=== PATIENT | male | born 1975 | race African-American/Black ===

== ENCOUNTER 2016-10-26 11:07 | Emergency (ER) | payer OTHER ==
[~2016-10-26] VITALS: Ht 182.9 cm; Wt 135.2 kg
[2016-10-26 11:14] VITALS: BP 145/97
--- NOTE | 2016-10-26 11:20 | NUR ---
PATIENT AMBULATED TO ER BED 3.
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
--- NOTE | 2016-10-26 11:21 | NUR ---
Patient being evaluated by physician at bedside.
--- NOTE | 2016-10-26 11:25 | NUR ---
ice pack made with a glove---applied to pt's knee
--- NOTE | 2016-10-26 11:38 | NUR ---
dc home instructions given to pt--continue to wait for x-ray results.
--- NOTE | 2016-10-26 11:56 | NUR ---
portable x-ray completed
--- NOTE | 2016-10-26 12:20 | NUR ---
encouraged to elevate leg while at rest and apply ice within first x48hrs then turn to heat packs also to f/u with pmd
[2016-10-26 12:33] VITALS: BP 141/95
== END 2016-10-26 12:20 | disposition home or self-care (01) ==
LOC: MED 11:07
DX: S80.01XA Contusion of right knee, initial encounter (principal); G43.909 Migraine, unspecified, not intractable, without status migrainosus; R03.0 Elevated blood-pressure reading, without diagnosis of hypertension; V49.40XA Driver injured in collision with unspecified motor vehicles in traffic accident, initial encounter; Y93.89 Activity, other specified; Y92.89 Other specified places as the place of occurrence of the external cause; Y99.8 Other external cause status
CPT/HCPCS: 73562; 99284; Q0092

== ENCOUNTER 2016-12-12 02:25 | Emergency (ER) | payer OTHER ==
[~2016-12-12] VITALS: Ht 180.3 cm; Wt 111.1 kg
[2016-12-12 02:38] VITALS: BP 145/74
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
[2016-12-12 03:18] VITALS: BP 132/67
--- NOTE | 2016-12-12 03:18 | NUR ---
Patient discharged with v/s stable. Written and verbal after care instructions given and explained. Patient verbalized understanding. Ambulatory with steady gait. All questions addressed prior to discharge. Advised to follow up with PMD.
== END 2016-12-12 03:18 | disposition home or self-care (01) ==
LOC: MED 02:25
DX: S86.911A Strain of unspecified muscle(s) and tendon(s) at lower leg level, right leg, initial encounter (principal); R03.0 Elevated blood-pressure reading, without diagnosis of hypertension; V89.2XXA Person injured in unspecified motor-vehicle accident, traffic, initial encounter; Y93.89 Activity, other specified; Y92.89 Other specified places as the place of occurrence of the external cause; Y99.8 Other external cause status
CPT/HCPCS: 29505; 99283

== ENCOUNTER 2017-04-12 00:43 | Emergency (ER) | payer OTHER ==
[~2017-04-12] VITALS: Ht 180.3 cm; Wt 131.5 kg
[2017-04-12 00:45] VITALS: BP 153/77
[2017-04-12 01:57] LABS: HEMATOCRIT 42.1 % (36-52); HEMOGLOBIN 13.7 g/dL (12.0-18.0); MEAN CORPUSCULAR HEMOGLOBIN 29 pg (27-31); MEAN CORPUSCULAR HGB CONC 33 g/dL (33-37); MEAN CORPUSCULAR VOLUME 88 fL (80-94); PLATELET COUNT (AUTO) 212 K/uL (140-450); RED BLOOD CELL COUNT(AUTO) 4.78 MIL/uL (4.20-6.10); RED CELL DISTRIBUTION WIDTH 12.8 % (11.6-13.7)
[2017-04-12 02:11] LABS: ANION GAP 11.2 (8-16); CARBON DIOXIDE 27.2 mmol/L (21-32); CREATININE 1.1 mg/dL (0.7-1.3); POTASSIUM 3.4 mmol/L (3.5-5.1)
[2017-04-12 02:12] LABS: LYMPHOCYTES % (MANUAL) 27 % (20-46)
[2017-04-12 02:13] LABS: EOSINOPHILS % (MANUAL) 2 % (0-4); MONOCYTES % (MANUAL) 8 % (5-12)
[2017-04-12 02:16] LABS: ALBUMIN 3.8 g/dL (3.4-5.0); TOTAL BILIRUBIN 0.2 mg/dL (0.0-1.0)
[2017-04-12 02:18] LABS: PROTHROMBIN TIME 9.9 secs (10.8-13.4)
--- NOTE | 2017-04-12 03:08 | NUR ---
BIB WHEELCHAIR TO ER BED 3
--- NOTE | 2017-04-12 03:12 | NUR ---
PATIENT PRESENTS TO ED WITH C/O CHEST PAIN X 1 DAY NON RADIATING, SUBSTERNL. PT STATES PAIN IS SHARP WAS 9/10 WHEN IT OCCURRED BY NOW 0/10. PT ALSO C/O LEFT KNEE PAIN, PT DENIES ANY TRUAMA TO THE AREA BUT DID STATES HE STANDS ON HIS FEET ALOT WHILE AT WORK. PT STATES HE IS HAVING BILAT FOOT SWELLING X 13 MONTHS . PT DENIES N/V/D; SKIN IS PINK/WARM/DRY; AAOX4 WITH EVEN AND STEADY GAIT; LUNGS CLEAR BL; HR EVEN AND REGULAR; PT DENIES ANY FEVER, SOB, OR COUGH AT THIS TIME; PATIENT STATES PAIN OF 0/10 AT THIS TIME; VSS; PATIENT FOR COMFORT; HOB ELEVATED; BEDRAILS UP X2; BED DOWN. ER MD MADE AWARE OF PT STATUS.
[2017-04-12 04:32] VITALS: BP 142/73
--- NOTE | 2017-04-12 04:32 | NUR ---
Patient discharged with v/s stable. Written and verbal after care instructions given and explained. Patient alert, oriented and verbalized understanding of instructions. Ambulatory with steady gait. All questions addressed prior to discharge. ID band removed. Patient advised to follow up with PMD. Rx of NAPROSYN 500MG AND ULTRAM 50MG given. Patient educated on indication of medication including possible reaction and side effects. Opportunity to ask questions provided and answered.
--- NOTE | 2017-04-12 04:33 | NUR ---
DURING LALA WRAP, PT WAS AT BEDSIDE (WHO WAS NOT PRESENT DURING ASSESSMENT), REQUESTED DR GROSSMAN TO EXPLAIN WHY PT HAS BEEN DISCHARGED. WHEN DR GROSSMAN CAME TO BEDSIDE THE BEGAN TO AGGRESSIVELY SPEAK TO DR GROSSMAN DEMAND ANSWERS. DR GROSSMAN EXPLAINED TO THE PT THAT EVEN THOUGH THE PT CAME IN EXPRESSING CHEST PAIN, HE DID NOT STATE ANY PAIN WHEN IN ER BED. DR GROSSMAN ALSO EXPLAINED THAT ALL TEST CAME BACK NORMAL, BUT THERE APPEARS TO BE A SPRAIN TO THE LEFT KNEE SO WE WILL LALA-WRAP IT AND SEND HIM HOME WITH PAIN MEDICATIONS FOR TREATMENT. *THE PT STARTED SAYING THAT "DR GROSSMAN NEEDS TO LOWER HIS VOICE AND TAKE HIS AGGRESSIVE TONE DOWN", WHEN IN FACT THERE WAS NO AGGRESSION THERE NOR WAS THERE ANY RAISED VOICE (I WAS THERE TO WITNESS). *WHEN DR GROSSMAN STATED HE HAS NO AGRESSION NOR IS HE RAISING HIS VOICE, HE RESPONDED TO PT IS THERE ANY ISSUES SHE HAS WITH HIM? *SHE THEN RESPONDED BY POINTED HER FINGER AND CONTACTED THE DOCTOR AND PUSHED HIM WITH HER FINGER. *DR GROSSMAN RESPONED BY STATING AND POINTING BACK AT THE PT (NOT TOUCHING IN MID-AIR) "DONT TOUCH ME, I CAN CALL SECURITY" *PT RESPONDED BY SAYING "DONT POINT AT ME!, I HOPE YOU KNOW I WRITE REALLY GOOD LETTERS." DR GROSSMAN WALKED AWAY AND I CONTINUED TO WRAP THE PATIENTS LEFT KNEE. I ATTEMPTED TO DEESCALATE THE SITUATION BY RE-EXPLAINING THE TREATMENT AND RESULTS BUT THE CONTINUED TO OVERSPEAK THE PT. *WHILE FINISHING THE LALA-WRAP THE PT CONTINUED TO CURSE AT THE DOCTOR STATING "HE BETTER WATCH WHERE PUTS THAT FINGER OR I WILL BREAK HIS ARM" THAT IS WHEN I STOPPED LISTENING TO THE PT/AND PT AND WALKED OVER TO TELL THE DOCTOR AND CHARGE NURSE KENNETH. DR GROSSMAN TOLD ME TO CONTACT SECURITY AND KENNETH CHARGE NURSE STATED "THAT IS A TREAT TO MEDICAL STAFF, WE NEED TO CONTACT POLICE DEPT." BOTH SECURITY AND PD WAS CONTACTED. WHEN SECURITY CAME, THE PT AND APPEARED TO BE UPSET THAT WE CALLED. STATING "WHY ARE YOU HERE ?" TO THE SECURITY. *I TOLD THE PT AND PT THAT SECURITY WAS CALLED BC THEY THREATEN TO BREAK THE DOCTORS ARM. *THE PT THEN STATED THAT SHE "DID NOT SAY IT TO THE DOCTOR DIRECTLY BUT TO ME." IN WHICH I STATED THAT, "THAT WAS STILL A THREAT" *THE PT BEGAN TO CURSE AT ME AND AFTER HAVING THE PT SIGN HIS DISCHARGE PAPER WORK, WHILE WALKING AWAY FROM THE PT , ATTEMPTED TO WALK UP TO ME AGGRESSIVELY AND I WALKED BY HER SHE STATED "THATS RIGHT" . *CARITO FROST GOT ON SCENE THE PT WAS WALKING OUT THE ER DOOR. WHEN ADDRESSED THE DOCTOR, DR GROSSMAN TOLD PD THAT THE PT THREATED HIM AND WISHES THEM NOT TO RETURN. CARITO FROST STATED HE WILL DO THAT AND WALKED OUT THE ER DOOR.
== END 2017-04-12 04:32 | disposition home or self-care (01) ==
LOC: MED 00:43
DX: R07.89 Other chest pain (principal); M25.562 Pain in left knee; R03.0 Elevated blood-pressure reading, without diagnosis of hypertension
CPT/HCPCS: 36415; 71010; 73562; 80053; 84484; 85025; 85610; 85730; 93005; 99285

== ENCOUNTER 2021-12-19 15:29 | Emergency (ER) | payer BC, MEDICAID ==
[~2021-12-19] VITALS: Ht 180.3 cm; Wt 146.1 kg
[2021-12-19 15:45] VITALS: BP 149/97
--- NOTE | 2021-12-19 15:55 | NUR ---
PT AMBULATED TO ER BED 2 WITH A STEADY GAIT.
--- NOTE | 2021-12-19 16:09 | NUR ---
DR. KIRKLAND AT PT BEDSIDE FOR FURTHER EVALUATION.
--- NOTE | 2021-12-19 16:18 | NUR ---
46/M C/O BILATERAL LEG EDEMA FOR "A FEW MONTHS." STATES HE HASN'T SEEN A PCP FOR SYMPTOMS, DENIES CP, SOB. PT WORKS A [employer] AND IS ON HIS FEET A LOT. PT STATES HE RECENTLY TRIED [employer] SOCKS AND HE DID NOT FEEL THEY WORKED BUT HIS TOLD HIM THEY DID. PT DENIES ANY PAIN AT THE MOMENT BUT DID STATE THAT HE GETS PAIN ONCE IN AWHILE FROM IT. PT A&OX4 WITH NORMAL RESPIRATIONS. RESTING IN BED. PMH: DENIES NKA
--- NOTE | 2021-12-19 16:43 | NUR ---
LAB AT BEDSIDE COLLECTED URINE.
[2021-12-19 17:01] LABS: BASOPHILS % (AUTO) 0.7 % (0.0-2.0); EOSINOPHILS # (AUTO) 0.2 K/uL (0-0.4); HEMATOCRIT 41.7 % (36-52); LYMPHOCYTES # (AUTO) 1.5 K/uL (2.0-11.5); MEAN CORPUSCULAR HEMOGLOBIN 29 pg (27-31); MEAN CORPUSCULAR HGB CONC 34 g/dL (33-37); MEAN CORPUSCULAR VOLUME 85.8 fL (80-94); MONOCYTES # (AUTO) 0.4 K/uL (0.8-1.0); MONOCYTES % (AUTO) 7.8 % (1.7-9.3); NEUTROPHILS % (AUTO) 58.5 % (42.2-75.2); PLATELET COUNT (AUTO) 198 K/uL (140-450); RED BLOOD CELL COUNT(AUTO) 4.86 MIL/uL (4.20-6.10); RED CELL DISTRIBUTION WIDTH 13.3 % (11.6-13.7); WHITE BLOOD COUNT (AUTO) 5.2 K/uL (4.8-10.8)
[2021-12-19 17:21] LABS: ALBUMIN 3.7 g/dL (3.4-5.0); ANION GAP 9.3 (8-16); CARBON DIOXIDE 31.1 mmol/L (21-32); CREATININE 1.1 mg/dL (0.6-1.3); POTASSIUM 3.4 mmol/L (3.5-5.1); TOTAL BILIRUBIN 0.4 mg/dL (0.0-1.0)
[2021-12-19 17:50] LABS: APPEARANCE,URINE CLEAR (CLEAR); BILIRUBIN,URINE NEGATIVE (NEGATIVE); BLOOD, URINE NEGATIVE (NEGATIVE); COLOR,URINE YELLOW (YELLOW); LEUKOCYTE ESTERASE ,URINE NEGATIVE (NEGATIVE); NITRITE, URINE NEGATIVE (NEGATIVE); UGLUCOSE NEGATIVE (NEGATIVE)
[2021-12-19 18:31] VITALS: BP 146/97
--- NOTE | 2021-12-19 18:33 | NUR ---
Patient discharged with v/s stable. Written and verbal after care instructions given and explained. Patient verbalized understanding. Ambulatory with steady gait. All questions addressed prior to discharge. Advised to follow up with PMD. GIVEN WORK NOTE
== END 2021-12-19 18:33 | disposition home or self-care (01) ==
LOC: MED 15:29
DX: R60.0 Localized edema (principal)
CPT/HCPCS: 36415; 80053; 81003; 85025; 99283

== ENCOUNTER 2021-12-30 22:34 | Emergency (ER) | payer MEDICAID ==
[~2021-12-30] VITALS: Ht 179.1 cm; Wt 147.9 kg
[2021-12-30 22:41] VITALS: BP 173/111
--- NOTE | 2021-12-30 22:45 | NUR ---
pt taken to bed 12.
--- NOTE | 2021-12-30 23:21 | NUR ---
46 Y.O. M BIB C/O left side of face next to nose swelling. pt states he may have an infection or abcess d/t a broken tooth. PT STATED THAT HE WAS WAITING FOR HIS NEW INSURANCE TO "KICK IN" TO GET THE TOOTH PULLED. PAIN IS 10/10 IN THE L CHEEK/GUM AREA. NO SOB, PAIN IN ANY OTHER PART OF HIS FACE OR BODY. A&OX4, GCS 15, SKIN INTACT, AND VITALS ARE STABLE. denies hx rx and allergies
--- NOTE | 2021-12-30 23:23 | NUR ---
ERMD AT BEDSIDE ASSESSING PT
[2021-12-30] MEDS ORDERED: IBUP-2213 PO (23:27)
[2021-12-30] MEDS ORDERED: ACET-10509 PO (23:27)
[2021-12-30] MEDS ORDERED: AMOX-1230 PO (23:27)
[2021-12-30] MEDS ORDERED: ACETAMINOPHEN EXTRA STRENGTH 500 MG TAB PO ONE (23:30)
[2021-12-30] MEDS ORDERED: IBUPROFEN 600 MG TAB PO ONE (23:30)
[2021-12-31 00:08] VITALS: BP 173/111
--- NOTE | 2021-12-31 00:08 | NUR ---
Patient discharged with v/s stable. Written and verbal after care instructions given and explained. Patient alert, oriented and verbalized understanding of instructions. Ambulatory with steady gait. All questions addressed prior to discharge. ID band removed. Patient advised to follow up with PMD. Rx of TYLENOL, AMOXICILLIN/POTASSIUM CLAV AND IBUPROFEN given. Patient educated on indication of medication including possible reaction and side effects. Opportunity to ask questions provided and answered.WORK NOTE PROVIDED ALSO
== END 2021-12-31 00:08 | disposition home or self-care (01) ==
LOC: MED 22:34
DX: K04.7 Periapical abscess without sinus (principal); F14.90 Cocaine use, unspecified, uncomplicated; Z79.899 Other long term (current) drug therapy
CPT/HCPCS: 99283